=== PATIENT | male | born 1970 | race Caucasian/White ===

== ENCOUNTER 2025-06-12 11:34 | Outpatient (CLI) | payer BC | END 2025-06-12 11:35 | disposition home or self-care (01) | LOC: CSHULT 11:34 | PROVIDERS: ATTEND Otolaryngology Plastic Surgery within the Head & Neck | DX: E04.1 Nontoxic single thyroid nodule (principal); E04.2 Nontoxic multinodular goiter | CPT/HCPCS: 76536 ==